=== PATIENT | male | born 1980 | race American Indian/Alaskan Native ===

== ENCOUNTER 2020-11-23 15:46 | Emergency (ER) | payer SELFPAY ==
[2020-11-23 16:50] VITALS: BP 141/105
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
== END 2020-11-23 20:21 | disposition home or self-care (01) ==
LOC: ED 15:46
DX: S50.811A Abrasion of right forearm, initial encounter (principal); M54.2 Cervicalgia; I10 Essential (primary) hypertension; Z98.890 Other specified postprocedural states; Z79.899 Other long term (current) drug therapy; V49.59XA Passenger injured in collision with other motor vehicles in traffic accident, initial encounter; Y92.410 Unspecified street and highway as the place of occurrence of the external cause; Y93.89 Activity, other specified; Y99.8 Other external cause status
CPT/HCPCS: 72040